=== PATIENT | male | born 1950 | race Hispanic/Latino ===

== ENCOUNTER 2019-03-11 05:23 | Emergency (ER) | payer OTHER ==
[2019-03-11 05:29] VITALS: RESP 18; TEMP 97.5
--- NOTE | 2019-03-11 05:32 | ED PDOC ---
Arrival/HPI - General Chief Complaint: Trauma Time Seen by Provider: 03/11/19 05:29 Historian: Patient - History of Present Illness Narrative History of Present Illness (Text): 03/11/19 05:30 Raul Johnston is a 68 year old male, whose past medical history includes hypertension, who presents to the ED status post fall. Patient states he tripped and fell while walking and possible scratched his face with keys. Patient now complaining of an abrasion to the left facial/maxillary area. Patient denies any loss of consciousness, vision changes, fever, chills, chest pain, shortness of breath, abdominal pain, nausea, vomiting, back pain, neck pain, headache, dizziness, or any other complaints. Time/Duration: Prior to Arrival Symptom Onset: Sudden Symptom Course: Unchanged Activities at Onset: Light Context: Work, Tripped Past Medical History - Provider Review Nursing Documentation Reviewed: Yes - Cardiac Hx Cardiac Disorders: Yes Hx Hypertension: Yes - Psychiatric Hx Substance Use: No Family/Social History - Physician Review Nursing Documentation Reviewed: Yes Family/Social History: Unknown Family HX Smoking Status: Never Smoked Hx Alcohol Use: Yes (former) Hx Substance Use: No Allergies/Home Meds Allergies/Adverse Reactions: Allergies No Known Allergies Allergy (Verified 03/11/19 05:27) Home Medications: Home Meds Medication Instructions Recorded Confirmed No Known Home Med 03/11/19 03/11/19 Review of Systems - Physician Review All systems were reviewed & negative as marked: Yes - Review of Systems Constitutional: Normal. absent: Fevers Eyes: Normal ENT: Normal Respiratory: Normal. absent: SOB, Cough Cardiovascular: Normal. absent: Chest Pain Gastrointestinal: Normal. absent: Abdominal Pain, Diarrhea, Nausea, Vomiting Genitourinary Male: Normal. absent: Dysuria, Frequency, Hematuria, Urinary Output Changes Musculoskeletal: Normal. absent: Back Pain, Neck Pain Skin: Other (+abrasion to left face) Neurological: Normal. absent: Headache, Dizziness Endocrine: Normal Hemo/Lymphatic: Normal Psychiatric: Normal Physical Exam Vital Signs Reviewed: Yes Vital Signs Temp Pulse Resp BP Pulse Ox 03/11/19 05:27 97.5 F L 100 H 18 186/128 H 98 Temperature: Afebrile Blood Pressure: Hypertensive Pulse: Regular Respiratory Rate: Normal Appearance: Positive for: Well-Appearing, Non-Toxic, Comfortable Pain Distress: None Mental Status: Positive for: Alert and Oriented X 3 - Systems Exam Head: Present: Normocephalic, Abrasion (Superficial abrasion to left maxilla/cheek) Pupils: Present: PERRL Extroacular Muscles: Present: EOMI Conjunctiva: Present: Normal Mouth: Present: Moist Mucous Membranes Neck: Present: Normal Range of Motion Respiratory/Chest: Present: Clear to Auscultation, Good Air Exchange. No: Respiratory Distress, Accessory Muscle Use Cardiovascular: Present: Regular Rate and Rhythm, Normal S1, S2. No: Murmurs Abdomen: No: Tenderness, Distention, Peritoneal Signs Back: Present: Normal Inspection Upper Extremity: Present: Normal Inspection. No: Cyanosis, Edema Lower Extremity: Present: Normal Inspection. No: Edema Neurological: Present: GCS=15, CN II-XII Intact, Speech Normal Skin: Present: Warm, Dry, Normal Color. No: Rashes Psychiatric: Present: Alert, Oriented x 3, Normal Insight, Normal Concentration Medical Decision Making ED Course and Treatment: 03/11/19 05:30 Impression: 68 year old male complaining of a left facial abrasion s/p trip and fall this morning. Plan: -- Reassess and disposition Progress Notes: 03/11/19 05:40 Superficial abrasion to left cheek/maxilla irrigated and cleansed thoroughly with sterile saline. No debris/foreign bodies noted. Bacitracin was applied and site was dressed with clean, dry, sterile dressing. \ - Scribe Statement The provider has reviewed the documentation as recorded by the Jerry Faith Provider Scribe Attestation: All medical record entries made by the Scribe were at my direction and personally dictated by me. I have reviewed the chart and agree that the record accurately reflects my personal performance of the history, physical exam, medical decision making, and the department course for this patient. I have also personally directed, reviewed, and agree with the discharge instructions and disposition. Disposition/Present on Arrival - Present on Arrival Any Indicators Present on Arrival: No History of DVT/PE: No History of Uncontrolled Diabetes: No Urinary Catheter: No History of Decub. Ulcer: No History Surgical Site Infection Following: None - Disposition Have Diagnosis and Disposition been Completed?: Yes Diagnosis: Facial abrasion Disposition: HOME/ ROUTINE Disposition Time: 05:59 Patient Plan: Discharge Condition: GOOD Discharge Instructions (ExitCare): Skin Abrasions (DC) Additional Instructions: Local wound care/Keep clean/apply bacitracin daily/clean dressing Forms: [facility] (Khmer)
[2019-03-11] MEDS ORDERED: Bacitracin 500 Units/gm Oint Foilpak UD ONE (05:43)
[2019-03-11 05:55] VITALS: BP 151/93; PULSE 92; O2SAT 100
== END 2019-03-11 06:06 | disposition home or self-care (01) ==
LOC: ED 05:23
DX: S00.91XA Abrasion of unspecified part of head, initial encounter (principal); W01.0XXA Fall on same level from slipping, tripping and stumbling without subsequent striking against object, initial encounter; Y93.01 Activity, walking, marching and hiking